=== PATIENT | male | born 1945 | race Native Hawaiian/Other Pacific Islander ===

== ENCOUNTER 2022-01-17 02:07 | Emergency (ER) | payer OTHER ==
[~2022-01-17] VITALS: Ht 180.3 cm; Wt 117.0 kg
[2022-01-17 02:28] LABS: PLATELET COUNT 161 K/uL (142-355)
[2022-01-17 02:37] LABS: POTASSIUM 3.9 mmol/L (3.6-5.2)
[2022-01-17 02:57] LABS: PARTIAL THROMBOPLASTIN TIME 24.7 SECONDS (24.5-33.6)
[2022-01-17 04:00] VITALS: BP 130/67; TEMP 97.9
== END 2022-01-17 04:00 | disposition short-term general hospital (02) ==
LOC: ED 02:07
PROVIDERS: Emergency Medicine
DX: I48.20 Chronic atrial fibrillation, unspecified (principal); R07.89 Other chest pain
CPT/HCPCS: 80053; 81002; 82550; 83880; 84443; 84484; 85027; 85610; 85730; 93005; 96360; 96365; 96366; 96375; 99284; J3490